=== PATIENT | male | born 1975 | race Two or more races ===

== ENCOUNTER 2024-10-05 07:06 | Outpatient (CLI) | payer OTHER | END 2024-10-05 07:11 | disposition home or self-care (01) | LOC: TOM 07:06 | PROVIDERS: ATTEND Specialist | DX: K40.90 Unilateral inguinal hernia, without obstruction or gangrene, not specified as recurrent (principal) ==

== ENCOUNTER 2024-12-13 08:30 | Day surgery (SDC) | payer OTHER ==
[2024-12-07 09:20] LABS: BASO % 1.2 % (0.1-1.2); EOS # 0.08 (0.04-0.54); EOS % 1.9 % (0.7-7.0); LYMPH # 1.15 (1.18-3.74); LYMPH % 27.3 % (19.3-53.1); MEAN PLATELET VOLUME 9.30 fl (9.4-12.4); MONO # 0.59 (0.24-0.82); NEUT # 2.34 (1.56-6.13); NEUT % 55.4 % (34.0-71.1); RED CELL DISTRIBUTION WIDTH 13.1 % (11.6-14.4)
[2024-12-07 09:24] LABS: MONO % 14.0 % (4.7-12.5)
[2024-12-07 09:28] LABS: URINE APPEARANCE Clear; URINE BILIRRUBIN Negative (NEGATIVE); URINE BLOOD Negative; URINE COLOR Yellow; URINE GLUCOSE Negative (NEGATIVE); URINE KETONE Negative (NEGATIVE); URINE LEUKOCYTE Negative; URINE NITRATE Negative; URINE PROTEIN Negative (NEGATIVE); URINE UROBILINOGEN 0.2 E.U./dl
[2024-12-07 09:29] VITALS: BP 140/90
[2024-12-07 09:33] LABS: URINE BACTERIA 15.9 uL (0.0-1933); URINE WBC 2.5 uL (0.0-23.2)
[2024-12-07 09:49] LABS: INR 0.99
[2024-12-07 09:50] LABS: URINE CAST 0.00 uL (0.0-1.40); URINE EPITHELIAL CELLS 0.6 uL (0.0-38.8); URINE RBC 1.0 uL (0.0-20.8)
[2024-12-07 10:12] LABS: ALT/SGPT 48.0 U/L (12-78); AST/SGOT 26.0 U/L (15-37); BILIRUBIN TOTAL 0.45 mg/dL (0.3-1.2); BUN CREA RATIO 17.0 (7.0-25.0); CREATININE SERUM 1.18 mg/dL (0.70-1.30); GFR 65.61; GLOBULINA 3.2 G/DL (2.4-3.5); GLUCOSE FASTING 105.0 mg/dL (65-100); OSMOLALITY SERUM 290.0 MOSM/KG (275-295)
[~2024-12-13] VITALS: Ht 177.8 cm; Wt 83.0 kg
[2024-12-13] MEDS ORDERED: CEFAZOLIN SODIUM 1,000 MG VIAL IV ONE (12:30)
[2024-12-13] MEDS ORDERED: SUGAMMADEX SODIUM 200 MG/2 ML VIAL IV ONE (13:30)
[2024-12-13] MEDS ORDERED: FAMOTIDINE/PF 20 MG/10 ML SYRINGE IV SCH (14:00)
[2024-12-13] MEDS ORDERED: CEFAZOLIN SODIUM 1,000 MG VIAL IV SCH (14:00)
[2024-12-13] MEDS ORDERED: MORPHINE SULFATE 4 MG/ML VIAL IV ONE (14:10)
== END 2024-12-13 15:55 | disposition home or self-care (01) ==
LOC: CIR.AMB 08:30
PROVIDERS: ATTEND Specialist
DX: K40.90 Unilateral inguinal hernia, without obstruction or gangrene, not specified as recurrent (principal)